=== PATIENT | female | born 1980 | race Caucasian/White ===

== ENCOUNTER 2023-07-17 19:06 | Outpatient (CLI) | payer BC | END 2023-07-17 19:07 | disposition home or self-care (01) | LOC: SCSRAD 19:06 | PROVIDERS: ATTEND Nurse Practitioner Family | DX: K59.00 Constipation, unspecified (principal); R93.5 Abnormal findings on diagnostic imaging of other abdominal regions, including retroperitoneum | CPT/HCPCS: 74018 ==